=== PATIENT | male | born 1980 | race Caucasian/White ===

== ENCOUNTER 2018-07-03 07:18 | Emergency (ER) | payer MEDICAID ==
[~2018-07-03] VITALS: Ht 170.2 cm; Wt 81.6 kg
[2018-07-03 07:24] VITALS: BP 138/88; Ht 170.2 cm; Wt 81.6 kg
== END 2018-07-03 08:18 | disposition home or self-care (01) ==
LOC: ED 07:18
DX: S39.012A Strain of muscle, fascia and tendon of lower back, initial encounter (principal); X58.XXXA Exposure to other specified factors, initial encounter; Y93.89 Activity, other specified; Y92.89 Other specified places as the place of occurrence of the external cause; Y99.8 Other external cause status

== ENCOUNTER 2018-07-23 03:27 | Emergency (ER) | payer MEDICAID ==
[~2018-07-23] VITALS: Ht 170.2 cm; Wt 81.9 kg
[2018-07-23 03:34] VITALS: Ht 170.2 cm; Wt 81.9 kg
[2018-07-23 04:21] VITALS: BP 129/75
== END 2018-07-23 04:21 | disposition home or self-care (01) ==
LOC: ED 03:27
DX: L50.0 Allergic urticaria (principal)
CPT/HCPCS: J7512

== ENCOUNTER 2019-02-12 14:45 | Emergency (ER) | payer MEDICAID ==
[~2019-02-12] VITALS: Ht 172.7 cm; Wt 84.4 kg
[2019-02-12 15:15] VITALS: Ht 172.7 cm; Wt 84.4 kg
[2019-02-12 18:37] VITALS: BP 152/82
== END 2019-02-12 18:37 | disposition home or self-care (01) ==
LOC: ED 14:45
DX: K64.9 Unspecified hemorrhoids (principal)